=== PATIENT | female | born 1955 | race Caucasian/White ===

== ENCOUNTER 2016-10-08 10:49 | Day surgery (SDC) | payer OTHER ==
[~2016-10-08] VITALS: Ht 167.6 cm; Wt 95.2 kg
--- NOTE | 2016-10-13 10:17 | OR ---
ADMIT: 10/08/2016 RM/LOC: [facility] MR#: [id number] [id number] [place] [address] [address] [place] [id number] Operative/Delivery Room Report SEX: F AGE: 61 : 1955 SURGERY DATE: 10/08/2016 SURGEON: Tamera Reyes MD PREOPERATIVE DIAGNOSIS: Cervical radiculopathy. POSTOPERATIVE DIAGNOSIS: Cervical radiculopathy. NAME OF PROCEDURE: Epidural injection, cervical with fluoroscopy. PAIN PATTERN: C6-7. LEVEL: C6-7. PREPROCEDURE DISCUSSION WITH PATIENT: Risks and complications were discussed before the procedure, and consent was obtained. ANESTHETIC AGENT: 0.25% bupivacaine. STEROID AGENT: Kenalog 40 mg. SEDATION: Versed 2 mg plus Fentanyl 50 mcg. FLUOROSCOPY TIME: 6 seconds. VIEW: AP. PROCEDURE DETAILS: The patient was taken to the procedure room and placed in a prone position. A pillow was placed to support the chest, and the forehead was supported by a rolled towel. The posterior neck was prepped and draped in the usual sterile fashion. Using 1% lidocaine, the area was infiltrated intradermally and deeper just off midline at the cervical interspace as identified by fluoroscopy. Once anesthesia was established, utilizing a paramedian approach, an 18-gauge Tuohy needle was advanced under fluoroscopic guidance until the tip of the needle contacted the lamina off midline. The needle was then advanced into the epidural space utilizing the loss of resistance technique with a pulsator type syringe containing preservative-free normal saline. There was no return of CSF or blood with aspiration. Then, 2 mL of Omnipaque 240 was injected noting adequate spread of dye, ADMIT: 10/08/2016 RM/LOC: [facility] MR#: [id number] [address] [place] [address] [address] [place] [id number] Operative/Delivery Room Report SEX: F AGE: 61 : 1955 confirming epidural placement. There was no apparent intrathecal spread or vascular uptake of the contrast material. After negative aspiration, 3 mL preservative free saline, 2 mL of bupivacaine 0.25%, and 40 mg of Kenalog injectate was injected incrementally. After flushing, the stylet was replaced and the needle withdrawn. A sterile dressing was applied. The patient was taken to the recovery area in stable condition. TOLERANCE: The patient tolerated the procedure well without difficulties or complications. VAS Preprocedure: 7. VAS Postprocedure: 0. Tamera Reyes MD/ domo JOB #: [id number] CC: Dakota Reyes, Attending Physician Dakota Reyes, Family Physician
== END 2016-10-08 14:00 | disposition home or self-care (01) ==
LOC: SSS 10:49
PROC: 3E0S33Z Introduction of Anti-inflammatory into Epidural Space, Percutaneous Approach (ICD-10-PCS; principal; 2016-10-08)
PROC: 3E0S3BZ Introduction of Anesthetic Agent into Epidural Space, Percutaneous Approach (ICD-10-PCS; principal; 2016-10-08)
PROC: B01BYZZ Fluoroscopy of Spinal Cord using Other Contrast (ICD-10-PCS; principal; 2016-10-08)
DX: M50.10 Cervical disc disorder with radiculopathy, unspecified cervical region (principal); M48.02 Spinal stenosis, cervical region; Z88.6 Allergy status to analgesic agent; Z79.899 Other long term (current) drug therapy

== ENCOUNTER → 2016-11-23 | Outpatient (CLI) | payer OTHER | END | disposition home or self-care (01) | LOC: RAD.S 12:54 | DX: Q28.3 Other malformations of cerebral vessels (principal); H74.8X1 Other specified disorders of right middle ear and mastoid ==